=== PATIENT | female | born 1965 | race Caucasian/White ===

== ENCOUNTER 2017-03-13 23:29 | Emergency (ER) | payer MEDICARE, OTHER ==
[~2017-03-13] VITALS: Ht 175.3 cm; Wt 59.0 kg
--- NOTE | 2017-03-13 23:36 | NUR ---
Attempted to call patient in for triage. Patient did not respond to chief innovation officer. Reattempted x 3 at this time, patient continues to watch TV in the waiting area, patient is not coming in as directed by RN. Will reattempt
[2017-03-14] MEDS ORDERED: SULFAMETH/TRIMETH 800/160 MG TABLET PO ONE
[2017-03-14 00:14] VITALS: BP 131/87
--- NOTE | 2017-03-14 00:15 | NUR ---
Patient discharged to home in stable conditon. Written and verbal after care instructions given. Patient verbalizes understanding of instructions. Ambulated from ER with stable gait. All belongings with patient
[2017-03-14] MEDS ORDERED: SULFAMETH/TRIMETH 800/160 MG TABLET ONE (00:18)
== END 2017-03-14 00:16 | disposition home or self-care (01) ==
LOC: ER 23:29
DX: L02.414 Cutaneous abscess of left upper limb (principal); J45.909 Unspecified asthma, uncomplicated
CPT/HCPCS: 99283; A4663